=== PATIENT | male | born 1940 | race African-American/Black ===

== ENCOUNTER 2016-10-24 13:25 | Day surgery (SDC) | payer MEDICARE ==
[2016-10-19 14:23] LABS: HEMATOCRIT 40.8 % (40.0-51.0); HEMOGLOBIN 13.7 g/dL (13.6-17.8)
[2016-10-19 14:25] LABS: INTERNATIONAL NORMAL RATI 0.9 UNITS (-); PROTIME (NOT ORD) 12.5 SEC (12.0-14.5)
[2016-10-19 14:26] LABS: PARTIAL THROMBO TIME 26.9 SEC (22.5-37.2)
[2016-10-19 14:39] LABS: CALCIUM, SERUM 9.4 MG/DL (8.5-10.4); CHLORIDE, SERUM 106 MMOL/L (96-112); CO2 (CARBON DIOXIDE) 28 MMOL/L (24-34); CREATININE 1.01 MG/DL (0.70-1.30); GFR AFRICAN AMERICAN 84 ML/MIN (>=60); GFR NON AFRICAN AMERICAN 72 ML/MIN (>=60); SODIUM, SERUM 142 MMOL/L (135-148)
[2016-10-19 14:40] LABS: BUN (BLOOD UREA NITROGEN) 13 MG/DL (6-23); GLUCOSE, SERUM 88 MG/DL (60-99)
--- NOTE | ~2016-10-24 | OP ---
Record Of Operation [facility] [address] [place]. [address] NAME: CHRISTINA HARPER : 42 STATUS : [facility]#: [id number] AGE: 76 ADM/REG DATE : 10/24/16 MR#: [id number] REPORT SERV DATE: 11/16/16 DICTATED BY: DATE: REPORT STATUS : Draft TRANSCRIBED BY: MODL DATE: 11/16/16 DATE OF PROCEDURE: 10/24/2016 PREOPERATIVE DIAGNOSIS: Painful benign soft tissue lesion, medial left foot. POSTOPERATIVE DIAGNOSIS: Painful benign soft tissue lesion, medial left foot. NAME OF OPERATION: Excisional biopsy of painful benign lesion, medial left foot. ANESTHESIA: General. HEMOSTASIS: Pneumatic ankle tourniquet. ESTIMATED BLOOD LOSS: Minimal. PROCEDURE IN DETAIL: Under mild sedation, the patient was brought to the operating room and placed on the operating table in supine position. A pneumatic ankle tourniquet was placed about the patient's left ankle. Following IV sedation, the foot was scrubbed, prepped, and draped in the usual aseptic manner. An Esmarch bandage was utilized to exsanguinate the patient's left foot. Pneumatic ankle tourniquet was inflated to 250 mmHg. Attention was then directed to the medial aspect of the left foot just distal to the medial malleolus where 3 cm linear longitudinal incision was made. The incision was deepened to subcutaneous tissue using sharp and blunt dissection. Care was taken to identify and retract all vital neurovascular structures. All bleeders were cauterized as necessary. At this time, the soft tissue lesion was dissected free of its soft tissue attachments and resected in toto and passed from the operative field and sent to Pathology. The lesion measured approximately 2 cm x 1.5 cm in diameter. The wound was then flushed with copious amounts of normal sterile saline. The subcutaneous tissues were reapproximated and coapted utilizing 4 0 Vicryl and the skin was reapproximated and coapted utilizing 5-0 nylon in a simple interrupted and horizontal mattress suture technique. A postoperative block consisting of 10 mL of 0.5% Marcaine plain was injected. The incision was dressed with Xeroform gauze and covered with sterile compressive dressing consisting of 4x4s, Conform gauze wrap, ABD pad. Pneumatic ankle tourniquet was then deflated and a prompt hyperemic response was noted to all digits of the left foot. Kendell wrap and postop shoe were then applied. The patient tolerated the procedure and anesthesia well. He was transferred to recovery room with vital signs stable and vascular status intact to all digits of the left foot. Following a period of postoperative monitoring, the patient was discharged home on written and oral postoperative instructions. 1. Keep dressing dry and intact, left foot. 2. Avoid excessive ambulation. 3. Ice and elevate left foot when at rest. 4. The patient to wear postop shoe at all times when ambulating. 5. The patient to contact Dr. Hanley for all postoperative followup care and if any problems arise. Record Of Operation [address] [address] NAME: CHRISTINA HARPER : 42 STATUS : [facility] PAT#: [id number] AGE: 76 ADM/REG DATE : 10/24/16 MR#: [id number] REPORT SERV DATE: 11/16/16 DICTATED BY: DATE: REPORT STATUS : Draft TRANSCRIBED BY: ANAYA DATE: 11/16/16 /ANAYA Adam Hanley DPM / [id number] CC: FANNY Bhatt MARK C
[~2016-10-24 13:25] MED LIST: ALEVE220 MG PO; CARDU4 PO; FLEX PO; FLONASE NAS; MULTIVIT/MIN PO; PROSCAR5 PO; VERELAN240 MG PO
== END 2016-10-24 19:27 | disposition home or self-care (01) ==
LOC: SDC 13:25
PROVIDERS: Podiatrist
PROC: 0JBR0ZZ Excision of Left Foot Subcutaneous Tissue and Fascia, Open Approach (ICD-10-PCS; 2016-10-24)
PROC: 0JQR0ZZ Repair Left Foot Subcutaneous Tissue and Fascia, Open Approach (ICD-10-PCS; principal; 2016-10-24 15:15)
DX: C46.1 Kaposi's sarcoma of soft tissue (principal); N40.0 Benign prostatic hyperplasia without lower urinary tract symptoms; I10 Essential (primary) hypertension; G89.29 Other chronic pain; M54.5 Low back pain; K21.9 Gastro-esophageal reflux disease without esophagitis; I45.10 Unspecified right bundle-branch block; Z45.02 Encounter for adjustment and management of automatic implantable cardiac defibrillator
CPT/HCPCS: 71020; 80048; 85014; 85018; 85610; 85730; 88305; 88341; 88342; 88360; 93005; J2370; J2405; J3010